=== PATIENT | female | born 1950 | race Caucasian/White ===

== ENCOUNTER 2024-12-04 07:49 | Outpatient (CLI) | payer MEDICARE ==
[2024-12-04 08:36] LABS: #Basophils 0.05 10x3/uL (0.0-0.2); #Eosinophils 0.07 10x3/uL (0.0-0.5); #Monocytes 0.50 10x3/uL (0.0-1.1); #Neutrophils 3.44 10x3/uL (1.5-8.4); %Basophils 0.9 % (0.0-2.0); %Eosinophils 1.3 % (0.0-6.0); %Lymphocytes 25.3 % (18.0-47.0); %Monocytes 9.2 % (0.0-10.0); %Neutrophils 63.1 % (40.0-75.0); Hematocrit 37.3 % (34.9-44.5); Hemoglobin 12.2 g/dL (12.0-15.5); Mean Corpuscular Hemoglobin 30.3 pg (27.0-33.0); Mean Corpuscular Volume 92.8 fL (81.6-98.3); Platelet Count 199 10x3/uL (150-450); Red Blood Cell (RBC) Count 4.02 10x6/uL (3.90-5.03); White Blood Cell (WBC) Count 5.45 10x3/uL (3.5-10.5)
[2024-12-04 09:06] LABS: ALT (SGPT) 17 U/L (Less than 34); AST (SGOT) 29 U/L (11-34); Albumin 4.3 g/dL (3.1-4.5); Alkaline Phosphatase 65 U/L (40-110); Anion Gap 12 mmol/L (10-20); BUN (Urea Nitrogen) 22 mg/dL (9.8-20.1); Bilirubin, Total 0.5 mg/dL (0.3-1.2); Calc. Creatinine Clearance 0 mL/min (70-130); Calcium 9.4 mg/dL (7.8-10.44); Carbon Dioxide 24 mmol/L (23-31); Chloride 109 mmol/L (98-107); Glucose 90 mg/dL (83-110); Potassium 3.5 mmol/L (3.5-5.1); Sodium 141 mmol/L (136-145)
== END 2024-12-04 07:50 | disposition home or self-care (01) ==
LOC: CSHLAB 07:49
PROVIDERS: ATTEND Specialist
DX: Z01.818 Encounter for other preprocedural examination (principal); K80.20 Calculus of gallbladder without cholecystitis without obstruction; R94.31 Abnormal electrocardiogram [ECG] [EKG]
CPT/HCPCS: 71046; 80053; 85025; 93005; 93010

== ENCOUNTER 2024-12-10 06:01 | Day surgery (SDC) | payer MEDICARE ==
[2024-12-04 08:20] VITALS: BMI 18.6
[2024-12-10] MEDS ORDERED: Ketorolac Tromethamine 30 MG (1 mL) VIAL ONE (06:28)
[2024-12-10] MEDS ORDERED: Acetaminophen 500 MG TAB ONE (06:29)
[2024-12-10] MEDS ORDERED: Bupivacaine/Epinephrine 0.25% 30 ML VIAL ONE (06:51)
[2024-12-10] MEDS ORDERED: CEFAZOLIN 2 GM VIAL ONE (06:51)
[2024-12-10] MEDS ORDERED: PROPOFOL 20 ML ONE (07:19)
[2024-12-10] MEDS ORDERED: Rocuronium Bromide 10 MG/ML (10ML VIAL) ONE (07:20)
[2024-12-10] MEDS ORDERED: Lidocaine 1% PF 5 ML VIAL ONE (07:20)
[2024-12-10] MEDS ORDERED: Ondansetron PF 4 MG/2 ML Vial ONE ×2 (07:44→10:15)
[2024-12-10] MEDS ORDERED: SUGAMMADEX SODIUM 200 MG/2 ML VIAL ONE (08:29)
[2024-12-10] MEDS ORDERED: HYDROmorphone 0.5 MG/0.5 ML SYRINGE ONE (09:38)
== END 2024-12-10 10:55 | disposition home or self-care (01) ==
LOC: CSHSDC 06:01
PROVIDERS: ATTEND Specialist
PROC: 0FT44ZZ Resection of Gallbladder, Percutaneous Endoscopic Approach (ICD-10-PCS; principal; 2024-12-10)
DX: K80.10 Calculus of gallbladder with chronic cholecystitis without obstruction (principal); K82.8 Other specified diseases of gallbladder; I10 Essential (primary) hypertension; E03.9 Hypothyroidism, unspecified; G43.909 Migraine, unspecified, not intractable, without status migrainosus; Z91.018 Allergy to other foods; Z88.5 Allergy status to narcotic agent; Z79.890 Hormone replacement therapy; Z79.899 Other long term (current) drug therapy
CPT/HCPCS: 47562; C1889; J1100; J1171; J1885; J2405; J2704; J3010; S2900; 88304

== ENCOUNTER 2025-01-07 08:55 | Outpatient (CLI) | payer OTHER | END 2025-01-07 08:56 | disposition home or self-care (01) | LOC: CSHDTY/OP 08:55 | PROVIDERS: ATTEND Specialist | DX: R63.4 Abnormal weight loss (principal) | CPT/HCPCS: 97802 ==